=== PATIENT | female | born 1985 | race Caucasian/White ===

== ENCOUNTER 2017-08-01 18:09 | Emergency (ER) | payer OTHER ==
[2017-08-01 18:19] VITALS: TEMP 98.6
--- NOTE | 2017-08-01 18:37 | EDPHY ---
H & P Time Seen by Provider: 08/01/17 18:19 HPI/ROS: CHIEF COMPLAINT: Right hip pain HISTORY OF PRESENT ILLNESS: 32-year-old female history of chronic right hip pain and pathology states that when she was getting to work today she tripped on a broom and twisted her right hip. She did not fall directly onto the hip. She has been complaining of right inguinal pain reproducible with range of motion ever since. No deformity. She is able to bear weight albeit with some pain. PRIMARY CARE PROVIDER: worker's compensation REVIEW OF SYSTEMS: A ten point review of systems was performed and is negative with the exception of the items mentioned in the HPI PHYSICAL EXAM (Prior to examination, patient consented to physical exam, hands were washed and my usual and customary physical exam procedures followed) 1) GENERAL: Well-developed, well-nourished, alert and oriented. Appears to be in no acute distress. 2) HEAD: Normocephalic 3) HEENT: sclera anicteric 4) LUNGS: Breathing comfortably. 5) SKIN: normal coloration. No signs of trauma 6) MUSCULOSKELETAL: no leg length discrepancy. No shortening or malrotation. No tenderness to palpation of the inguinal region. Reproducible pain with range of motion on the acetabulum. No pain with axial loading of the acetabulum. Soft compartments 7) NEUROLOGIC: Full sensation distally Smoking Status: Current every day smoker Constitutional: Initial Vital Signs Temperature (C) 37 C 08/01/17 18:14 Heart Rate 108 H 08/01/17 18:14 Respiratory Rate 22 H 08/01/17 18:14 Blood Pressure 152/98 H 08/01/17 18:14 O2 Sat (%) 99 08/01/17 18:14 O2 Delivery Mode Room Air Allergies/Adverse Reactions: No Known Allergies Allergy (Unverified 03/07/11 19:49) Home Medications: Medication Instructions Recorded Cyclobenzaprine [Flexeril 10 MG 10 mg PO TID #15 tab 08/01/17 (RX)] MDM/Departure - MDM Imaging Results: Imaging Impressions Hip X-Ray 08/01/17 18:33 Impression: There is no acute abnormality. If there is further clinical concern regarding the patient's right hip pain, MR imaging could be considered. Images reviewed myself ED Course/Re-evaluation: Care of patient under supervision of secondary supervising physician Dr Beal . Re-evaluation with serial exams. I do not think that further imaging studies emergently indicated. Recommend she follow up with worker's compensation provider. She is comfortable with this plan. Usual and customary orthopedic precautions and instructions provided. - Depart Disposition: Home, Routine, Self-Care Clinical Impression: Strain of right hip Qualifiers: Encounter type: initial encounter Qualified Code(s): S76.011A - Strain of muscle, fascia and tendon of right hip, initial encounter Condition: Good Instructions: Hip Sprain (ED) Additional Instructions: Return to the ER immediately if you experience discoloration, have worsening pain, numbness, tingling, or any other symptoms that concern you. If you received x-rays in the emergency department today, be advised, that ligamentous , tendon, muscular, and other non-bony injury cannot be fully ruled out. Try to keep your affected extremity elevated above the level of your chest, and keep cold packs on the affected area, for the next 48 hours. Stand Alone Forms: Work Comp Follow Up Prescriptions: Cyclobenzaprine [Flexeril 10 MG (RX)] 10 mg PO TID #15 tab Referrals: Jessica Gunter MD [Medical Doctor] - 2-3 days, call for appt.
[2017-08-01 19:26] VITALS: BP 148/90; PULSE 99; RESP 18; O2SAT 95
== END 2017-08-01 19:25 | disposition home or self-care (01) ==
DX: S76.011A Strain of muscle, fascia and tendon of right hip, initial encounter (principal); F17.200 Nicotine dependence, unspecified, uncomplicated; W18.40XA Slipping, tripping and stumbling without falling, unspecified, initial encounter; Y99.0 Civilian activity done for income or pay